=== PATIENT | female | born 1980 | race Hispanic/Latino ===

== ENCOUNTER 2017-01-26 11:19 | Day surgery (SDC) | payer BC, OTHER ==
[2017-01-26 11:32] VITALS: BMI 24.1
[2017-01-26 11:57] LABS: HEMATOCRIT 40.8 % (34.0-47.0); MEAN CELL VOLUME 88.6 fl (81.0-99.0); MEAN CORPUSCULAR HEMOGLOBIN 31.4 pg (27.0-31.0); MEAN CORPUSCULAR HGB CONC 35.4 g/dL (33.0-37.0); RED CELL DISTRIBUTION WIDTH 12.1 % (11.5-14.5); WHITE BLOOD COUNT 9.2 K/uL (4.8-10.8)
[2017-01-26] MEDS ORDERED: ePHEDrine 50 mg/ml Inj ONE (13:50)
[2017-01-26] MEDS ORDERED: Midazolam 2 MG/2 ML VIAL ONE (13:50)
[2017-01-26] MEDS ORDERED: Propofol 10 mg/ml Inj (20 ML) ONE (13:50)
[2017-01-26] MEDS ORDERED: Rocuronium 10 mg/ml (5 ml) ONE (13:51)
[2017-01-26] MEDS ORDERED: Succinylcholine 200 mg/10 ml Inj IV ONE (13:53)
[2017-01-26] MEDS ORDERED: Bupivacaine 0.25%-Epinephrine 1:200,000 (30 ml) Inj ONE (14:04)
[2017-01-26] MEDS ORDERED: Bupivacaine 0.5% Inj(30mL) ONE (14:09)
[2017-01-26] MEDS ORDERED: Lidocaine 4% (Laryng-O-Jet) Kit MM ONE (14:11)
--- NOTE | 2017-01-26 14:30 | CP.SDSHP ---
<Shashank Anderson - Last Filed: 01/27/17 11:11> Same Day Surgery H & P - History Proposed Procedure: Robotic endometriosis removal Pre-Op Diagnosis: Pelvic pain, infretility - Allergies Allergies: Allergies No Known Allergies Allergy (Verified 01/26/17 11:31) - Current Medications Current Medications: Levothyroxin, Metformin - Physical Exam General Appearance: NAD Vital Signs: Vital Signs 01/26/17 01/26/17 11:43 11:48 Temperature 98.1 F Pulse Rate 94 H 97 H Respiratory 18 Rate Blood Pressure 104/72 O2 Sat by Pulse 97 Oximetry Mental Status: Alert & Oriented x3 Neuro: WNL Heart: WNL Lungs: WNL GI: WNL - {Optional Preform as Required} Abdomen: WNL Integument: WNL Ortho: WNL ENT: WNL - Date & Time Date: 01/26/17 Time: 14:31 Short Stay Discharge - Short Stay Discharge Admitting Diagnosis/Reason for Visit: N80.0 Disposition: HOME/ ROUTINE Referrals: Owen Roberts [Primary Care Provider] - Follow-up: follow up with Dr. Roberts in 1-2 weeks No heavy lifting for 1month Ok to take shower tomorrow. Keep glue on. Resume regular diet Pain med as needed. <Owen Roberts - Last Filed: 01/28/17 10:15> Same Day Surgery H & P - History Pre-Op Diagnosis: pelvic pain dysmenorrhea dyspareunia - Allergies Allergies: Allergies No Known Allergies Allergy (Verified 01/26/17 11:31)
[2017-01-26] MEDS ORDERED: Lactated Ringer's 1,000 ML IV ONE ×3 (14:40→18:00)
[2017-01-26] MEDS ORDERED: Dexamethasone 4 mg/1 ml ONE (15:01)
[2017-01-26] MEDS ORDERED: Vasopressin 20 Units/ml Inj ONE (16:20)
[2017-01-26] MEDS ORDERED: Neostigmine Methylsulfate 3mg/3ml Syringe IV ONE (16:38)
[2017-01-26] MEDS ORDERED: HYDROmorphone 0.5 mg/0.5 ml ISec IVP PRN (16:58)
[2017-01-26] MEDS ORDERED: Lactated Ringer's 1,000 ML IV SCH (16:58)
[2017-01-26] MEDS ORDERED: Oxycodone/Acetaminophen 5/325 mg Tab PO PRN (17:41)
[2017-01-26 22:29] VITALS: RESP 19
[2017-01-26 22:30] VITALS: BP 126/74; PULSE 74; TEMP 97.6; O2SAT 100
--- NOTE | 2017-01-30 11:36 | OP ---
PROCEDURE DATE: 01/26/2017 PREOPERATIVE DIAGNOSES: Dysmenorrhea, dyspareunia, pelvic pain, adenomyosis, history of pelvic endometriosis, and bladder pain. POSTOPERATIVE DIAGNOSES: Dysmenorrhea, dyspareunia, pelvic pain, deep infiltrating endometriosis, stage III, and left ovarian endometrioma. PROCEDURE PERFORMED: Cystoscopy with bilateral ureteral catheterization, retrograde injection of indocyanine green to the right and left ureter, diagnostic hysteroscopy, laparoscopy, robotic da Josefina excision of endometriosis, bilateral ureterolysis, and left ovarian cystectomy, fulguration of endometriosis. performed separately enterolysis and excision of anterior rectal endometriosis. COMPLICATIONS: None. SURGEON: Owen Roberts MD. TRAVEL FREIGHT AND PASSENGER AGENT: Carroll Razo MD, from general surgery and Tatianna Pruitt PA-C. ESTIMATED BLOOD LOSS: Minimal. SAMPLES: Multiple samples sent to pathology including left ovarian endometrioma, left pelvic sidewall endometriosis, posterior cul-de-sac endometriosis, anterior rectal endometriosis, and right pelvic sidewall endometriosis. DRAINS: Talamantes catheter. BRIEF HISTORY: This patient is a 36-year-old patient who presented with a long history of dysmenorrhea, abdominal pain, pelvic pain, and significant dyspareunia. The patient had prior surgery x2 for treatment of endometriosis, which were in both cases incomplete due to extensiveness of disease. Upon examination in the office, she revealed to be symptomatic as well to have positive clinical findings of pelvic pain on examination. Prior to the surgery, we reviewed the likelihood of the procedure in identifying the cause of her pain problem, the likelihood of successful outcome and alternative modalities of treatment and potential risks. Given the prior multiple surgeries, the necessity of a cystoscopy with placement of stents and injection of dye was also discussed, and ample opportunity was given to the patient to ask and receive answers to her questions. The patient was counseled and demonstrated understanding of potential risk of the procedures which included, but were not limited to, bleeding, infection, bowel injury, ureteral injury, and blood transfusion. DESCRIPTION OF PROCEDURE: After the consent was finally obtained, the patient was brought to the operating room and placed on the operating table after induction of anesthesia. The patient was placed in dorsal lithotomy position with extensive padding in all areas prone to pressure. At this point, the patient was prepped and draped in the usual fashion, and a time-out was performed. At this point, the cystoscope was introduced into the bladder under direct vision. A pancystoscopy was performed and attention was paid to both ureteral orifices which were in normal anatomical position. The left ureteral orifice was catheterized with a [place] open-ended 10-[place] catheter, and a solution of ICG was then injected for a total of 4 mL into the left catheter. After it was advanced into the distal ureter, the ureteral catheter was then removed. Attention was then paid to the right ureteral orifice at which point the catheter was advanced to the level of the right distal ureter, and then an additional 4 mL of indocyanine green were then injected into the right ureter. The ureteral catheter was then removed. The bladder was then inspected and noted to be free of tumors, stones, bleeding sources, or interstitial cystitis. The cystoscope was then removed, and a 16-[place] Talamantes catheter was placed. At this point, attention was paid to the vaginal area, where a speculum was placed into vagina. The anterior lip of the cervix was grasped. The cervix was gently dilated. The uterus was dilated, and a hysteroscope was inserted into the uterine cavity revealing a normal cavity with a slight arcuate appearance. Small dots suggestive of adenomyosis were also visible on the cavity. This went along with the possibility of adenomyosis on ultrasound. At this point, an incision was made below the umbilicus with the standard open laparoscopy technique, and the abdominal cavity was entered in a blunt open fashion. After checking that there was no damage to any viscus, a blunt trocar was inserted, and the abdomen was insufflated. After insufflating the abdominal cavity under direct visualization, three additional trocars were inserted, left upper quadrant, left mid quadrant, and right upper quadrant. At this point, the da Josefina robot was brought onto the field. It was docked and targeted, and the procedure of laparoscopy was commenced. Finding as soon as we looked into the pelvis was evidence of at least of stage III endometriosis with the left ovary completely adherent to both the left pelvic sidewall and the ovarian fossa overlying the ureter on the left hand side. The ureter was retroverted and retroflexed. The colon was pulled to the left hand side and adherent to the pelvic sidewall. There were endometriosis implants on the ovary as well on the left hand side and right hand side, and there was also evidence of endometriosis implants on the left pelvic sidewall. At this point, the first part of the surgery involved elevating the ovary on the left hand side and detaching it from the pelvic sidewall. The anatomy was markedly distorted. The ovary was progressively dissected off, and it was a type 1 endometrioma. After elevating the ovary, the wall of the endometrioma was identified, and it was progressively dissected off and sent to pathology. At this point, the left ureter was identified, thanks to the fluorescent technology, and the left peritoneum was entered, and a progressive dissection was performed performing complete ureterolysis on the left hand side with extreme care to lateralize the ureter and not injuring either the ureter or the retroperitoneal vessels. After this was done, a progressive circumferential dissection was performed in the left ovarian fossa dissecting a large swath of area containing endometriosis. This was a very difficult dissection as the patient had [address] Razo was called into the field from general surgery as the intestine was completely pulled to the side in an abnormal position, and he helped dissect off the rectum from the rectovaginal space and opening the rectovaginal space and obtaining a few samples of endometriosis from the rectum. He will dictate separately this part of the procedure. Once this was done, additional dissection was performed, and more tissue was obtained from the left pelvic sidewall and the ovarian fossa. Additionally, more dissection was performed on the right hand side where after identifying the ureter on the right side, the retroperitoneal space was entered, and a progressive dissection was performed. Still utilizing fluorescent technology for identification of the ureter, a progressive dissection was performed, and after the ureterolysis was performed, a swath of peritoneum containing endometriosis was also dissected and sent to pathology. At this point, the posterior cul-de-sac was also examined, and additional samples were obtained from the posterior aspect of the uterus. Overall, the uterus appeared to have a "boggy" appearance with evidence of adenomyosis. At this point, both fallopian tubes were inspected and appeared to be patent with both normal fimbriated ends. At this point, the pelvis was irrigated and appeared to be normal. There was no bleeding. Normal uterine anatomy had been reestablished. The da Josefina robot was undocked. The instruments were removed. The abdomen was desufflated. The fascia was closed with 0 PDS, and the skin was closed with 4-0 Monocryl. At the end of the procedure, all the instrument counts were correct. The patient tolerated the procedure well and taken to recovery room in excellent condition. Owen Roberts MD RACHANA
--- NOTE | 2017-02-06 10:48 | PCM.OP ---
Operative Report - Operative Report Date of Surgery/Procedure: 01/26/17 Time of Surgery/Procedure: 08:00 Surgeon: Dr. Carroll Razo Ross Lift Operator: Dr. Owen Roberts Anesthesia/Sedation: general/Dr. Tate Pre-Operative Diagnosis: endometriosis and abdominal pain Post-Operative Diagnosis: same Indication for Surgery: endometriosis and abdominal pain Operative Findings: same Procedure/Operation Description: 1-Excision rudi-rectal/rectal endometriosis ( times 2). Brief History: This 36 year old woman had already been in the operating room with Dr. Roberts after intiating the robotic procedure when he noted multiple lesions on the rectum possibly consistent with endometriosis. Intraoperative general surgery consultation was requested. Description of the Procedure: Armando Rosas had already intiated the robotic procedure (separate dictation Dr. Roberts). With contol of the robotic console the lesions in question were examined and were separately involving 2 levels of the rectal wall. With blunt and sharp dissction the most superior lesion was dissected with the aid of electrocautery and was circumferentially incised. With the aid of the robotic device the lesion was completely excised, appropriately marked and sent to pathology as the first spearate specimen. The second lesion, which was more distal in the rectum was excised in a similar manner, marked and sent to pathologyas a separate second specimen. Hemostasis was examined and deemed adequate. The operation was then again turned over to Dr. Roberts (separate dication Dr. Roberts). Estimated Blood Loss: 5 cc Complications: none Specimen: 1-perirectal/rectal endometriosis. 2-perirectal/rectal endometriosis Discharge & Condition: stable
== END 2017-01-26 22:10 | disposition home or self-care (01) ==
LOC: H.OPSURG 11:19 → H.MEDSURG1 20:04 → H.OPSURG 22:10
PROVIDERS: ATTEND Obstetrics & Gynecology Reproductive Endocrinology
DX: N80.1 Endometriosis of ovary (principal); R10.2 Pelvic and perineal pain; N94.6 Dysmenorrhea, unspecified; N94.19 Other specified dyspareunia; R22.2 Localized swelling, mass and lump, trunk
CPT/HCPCS: 36415; 45171; 52005; 58563; 58662; 85027; 86850; 86900; 88305; C1729; J0330; J0690; J1100; J1170; J2001; J2250; J2405; J2704; J2710; J3010; J7030; J7040; J7120